=== PATIENT | male | born 1945 | race Caucasian/White ===

== ENCOUNTER 2019-02-08 05:31 | Emergency (ER) | payer OTHER ==
[~2019-02-08] VITALS: Ht 195.6 cm; Wt 129.3 kg
[2019-02-08 06:10] LABS: ABSOLUTE NEUTROPHILS 3.9 thou/uL (1.4-8.2); BASOPHILS 1.2 % (0.0-2.0); HEMATOCRIT 34.3 % (42.0-52.0); HEMOGLOBIN 11.3 gm/dL (14.0-18.0); LYMPHOCYTES 27.4 % (24.0-44.0); MCH 26.7 pg (26.0-34.0); MCHC 32.9 g/dL (28.0-37.0); MCV 81.1 fL (80.0-100.0); MONOCYTES 11.9 % (1.0-8.0); PLATELET COUNT 221 thou/uL (150-400); POLYS 55.5 % (36.0-66.0); RBC 4.23 mil/uL (4.50-6.00); RDW 16.5 % (10.5-14.5)
[2019-02-08] MEDS ORDERED: AMLODIPINE BESY10 MG PO (06:10)
[2019-02-08] MEDS ORDERED: ATORVASTATIN CA40 MG PO (06:11)
[2019-02-08] MEDS ORDERED: ASPIRIN325 PO (06:11)
[2019-02-08] MEDS ORDERED: FOLIC ACID1 MG PO (06:12)
[2019-02-08] MEDS ORDERED: DEPAKOTE 250MG250 M1 PO (06:12)
[2019-02-08] MEDS ORDERED: NEURONTIN 300300 M1 PO (06:13)
[2019-02-08] MEDS ORDERED: GABAPENTIN 100100 MG PO (06:13)
[2019-02-08] MEDS ORDERED: LOXAPINE5 MG PO (06:15)
[2019-02-08] MEDS ORDERED: LEVEMIR SUBQ (06:15)
[2019-02-08] MEDS ORDERED: KAPSPARGO SPRI100 MG PO (06:16)
[2019-02-08] MEDS ORDERED: NOVOLOG100 UNIT/1 SUBQ (06:16)
[2019-02-08] MEDS ORDERED: ZOLOFT50 MG PO (06:17)
[2019-02-08] MEDS ORDERED: TRAMADOL 50 MG50 MG PO (06:18)
[2019-02-08 06:19] LABS: CALCIUM 8.6 mg/dL (8.5-10.1); CREATININE 1.2 mg/dL (0.7-1.3); POTASSIUM 4.5 mmol/L (3.5-5.1)
[2019-02-08] MEDS ORDERED: ALDARA1 EACH TOP (06:19)
[2019-02-08] MEDS ORDERED: LOPERAMIDE 2 MG2 M1 PO (06:20)
[2019-02-08 07:02] LABS: URINE BILIRUBIN NEGATIVE (Negative); URINE BLOOD TRACE (Negative); URINE CLARITY CLEAR; URINE COLOR YELLOW; URINE GLUCOSE-RANDOM* TRACE (Negative); URINE KETONES NEGATIVE (Negative); URINE LEUKOCYTES-REFLEX NEGATIVE (Negative); URINE NITRITE-REFLEX NEGATIVE (Negative); URINE PROTEIN (DIPSTICK) 2+ (Negative); URINE SPECIFIC GRAVITY 1.025 (1.005-1.035); URINE UROBILINOGEN 0.2 E.U./dl (0.2-1.0)
[2019-02-08 07:13] LABS: CASTS None Seen /LPF (None Seen); MUCUS 4-6 Moderate strn/LPF (None Seen); SQUAMOUS 0-3 Few /LPF (0-3)
[2019-02-08 07:14] LABS: AMORPHOUS URATES Few /LPF (None Seen); BACTERIA-REFLEX 1-9 Few /HPF (None Seen); URINE RBC None Seen /HPF (0-2); URINE WBC-REFLEX 0-5 Rare /HPF (0-5)
[2019-02-08] MEDS ORDERED: AUGMENTIN 875-1 EACH PO (07:45)
[2019-02-08 07:46] LABS: ALBUMIN 3.1 g/dL (3.4-5.0); DIRECT BILIRUBIN < 0.1 mg/dL (<0.1-0.3); MAGNESIUM 1.9 mg/dL (1.8-2.4); SGOT 39 U/L (15-37); SGPT 33 U/L (30-65); TOTAL BILIRUBIN 0.2 mg/dL (<0.1-1.0); TOTAL PROTEIN 7.8 g/dL (6.4-8.2); TROPONIN-I <0.06 ng/mL (<0.06)
--- NOTE | 2019-02-08 08:28 | EKG ---
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: JORDAN : 1945 Requested By: Cameron Damon Order Number: [id number] MD: Duane Solis Measurements Intervals [place] Rate: 66 P: 257 NV: 244 QRS: 60 QRSD: 91 T: 114 QT: 452 QTc: 474 Interpretive Statements Sinus or ectopic atrial rhythm Borderline repolarization abnormality No previous ECG available for comparison Electronically Signed On 02-08-2019 8:28:45 CDT by Duane Solis [email or web address] ��������������������������������������������� <ELECTRONICALLY SIGNED> ���������������������������������������� By: Duane Solis MD, [facility] ��������������������������������������������� 02/08/19 0828 0630 Duane Solis MD, FACC /EPI
[2019-02-08 09:55] VITALS: BP 179/74
== END 2019-02-08 09:56 | disposition home or self-care (01) ==
LOC: ER 05:31
PROVIDERS: Emergency Medicine
DX: R41.0 Disorientation, unspecified (principal); L03.011 Cellulitis of right finger; E11.9 Type 2 diabetes mellitus without complications; I10 Essential (primary) hypertension; Z86.73 Personal history of transient ischemic attack (TIA), and cerebral infarction without residual deficits

== ENCOUNTER 2019-11-05 09:49 | Inpatient (IN) | payer OTHER ==
[~2019-11-05] VITALS: Ht 195.6 cm; Wt 138.5 kg
--- NOTE | ~2019-11-05 | HC ---
[facility] [place] [address] CONSULTATION Name: CHRISTIAN ESCOBAR Room #: 356-P [facility] IN M.R.#: [id number] Admission: 11/05/19 Attend Phys: Bibi Finnegan Discharge: 11/08/19 Date of : 49 Report #: [id number] THIS REPORT FOR: cc: FOR E.D. REG USE ONLY FAM - Clinic physician unknown Neo Baig MD ~ CC: [facility] unknown Bibi Finnegan DATE OF SERVICE: 11/08/2019 WOUND CARE CONSULTATION REQUESTING PHYSICIAN: Dr. Finnegan. CHIEF COMPLAINT: Multiple decubitus ulcers. HISTORY OF PRESENT ILLNESS: This is a 74-year-old white male who resides in a skilled nursing facility, who was admitted for right lower extremity cellulitis and was found to have multiple decubitus ulcers on admission. We were asked to evaluate the patient for this. The patient himself is an extremely poor historian, and the majority of the information is obtained from medical records. The patient once again was admitted for IV antibiotics secondary to cellulitis of the right lower extremity. The patient supposedly has had previous CVA with right left-sided hemiparesis. The patient states that he thinks that the decubitus ulcers have been there for several months, but he is unclear of exactly how they started. 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 CURRENT MEDICATIONS: Multiple, I reviewed the patient's medication list. DRUG ALLERGIES: None. SOCIAL HISTORY: The patient, per records, has a former history of smoking, but supposedly quit several years ago. The patient resides in a skilled nursing facility. FAMILY HISTORY AND REVIEW OF SYSTEMS: Unobtainable because of the patient's altered mental status. PHYSICAL EXAMINATION: VITAL SIGNS: Temperature 36.6, pulse 80, respirations 20, BP 125/65. [facility] [address] [place] [address] CONSULTATION Name: CHRISTIAN ESCOBAR Room #: 356-P [facility] IN M.R.#: [id number] Admission: 11/05/19 Attend Phys: Bibi Choudhary Rosalinapablo Discharge: 11/08/19 Date of : 49 Report #: [id number] GENERAL: This is an alert and oriented x 1 person, but not place or time, white male who is chronically ill appearing. HEENT: Normocephalic, atraumatic. Mucous membranes are dry. Pupils are round. Sclerae white. NECK: Supple, nontender. LUNGS: Clear. HEART: Regular. ABDOMEN: Soft, nontender. EXTREMITIES: Right upper extremity is somewhat edematous, approximately 1+. The patient is extended and essentially flaccid on the right hand. There are deep tissue injuries to the first, second, third and fourth digits over the PIP joints without open ulcerations. Left upper extremity is without edema or ulcerations. Evaluation of the sacral gluteal region reveals a stage 3 ulceration with mixed amount of granulation and slough. There is moderate amount of serosanguineous drainage noted without significant odor. Periwound is somewhat macerated. There is no significant undermining or tunneling. On the right lateral lower extremity, there is a deep tissue injury along the area of the lateral ankle, knee and thigh. There is increased erythema and warmth to the right lower extremity, and was somewhat tender. Right heel is intact. Left lower extremity has a [id number] amputation, which is intact without signs of ulceration or cellulitis. NEUROLOGIC: The patient is paralyzed on the right side. LABORATORY DATA: White count 14.8, hemoglobin 8.7, sed rate is 132. BUN 71, creatinine 3.1, albumin 1.8. Venous Doppler of the right upper extremity shows no signs of DVT. IMPRESSION: 1. Chronic stage 3 decubitus ulcer, sacrococcygeal and gluteal region. 2. Chronic deep tissue injury to the digits on the right hand 1 through 4. 3. Deep tissue injury to the right lateral ankle. 4. Deep tissue injury to the right knee. 5. Deep tissue injury to the right thigh. 6. Cellulitis, right leg. 7. Protein-calorie malnutrition -- severe, albumin 1.8. 8. Generalized debility. 9. Diabetes mellitus. PLAN: At this time, we will start Betadine to all the deep tissue injuries daily. We will put the patient on low air loss mattress, have him turned every 2 hours. We will start barrier cream and sacral foam to the sacral ulcer, change daily. Continue IV antibiotics per the hospitalist. We will continue all other current medications and continue to follow the patient. [address] [address] CONSULTATION Name: CHRISTIAN ESCOBAR Room #: 356-P [facility] IN M.R.#: [id number] Admission: 11/05/19 Attend Phys: Bibi Finnegan Discharge: 11/08/19 Date of : 49 Report #: [id number] I appreciate the ability to consult. By: 1638 [id number] Neo Baig MD /nt
[~2019-11-05 09:49] MED LIST: ALDARA1 EACH TOP; AMLODIPINE BESY10 MG PO; ASPIRIN325 PO; ATORVASTATIN CA40 MG PO; AUGMENTIN 875-1 EACH PO; DEPAKOTE 250MG250 M1 PO; FOLIC ACID1 MG PO; GABAPENTIN 100100 MG PO; KAPSPARGO SPRI100 MG PO; LEVEMIR SUBQ; LOPERAMIDE 2 MG2 M1 PO; LOXAPINE5 MG PO; NEURONTIN 300300 M1 PO; NOVOLOG100 UNIT/1 SUBQ; TRAMADOL 50 MG50 MG PO; ZOLOFT50 MG PO
[2019-11-05 09:52] VITALS: BP 108/58
[2019-11-05 12:15] LABS: HEMATOCRIT 31.4 % (42.0-52.0); HEMOGLOBIN 9.9 gm/dL (14.0-18.0); MCH 25.1 pg (26.0-34.0); MCHC 31.6 g/dL (28.0-37.0); MCV 79.6 fL (80.0-100.0); PLATELET COUNT 221 thou/uL (150-400); RBC 3.94 mil/uL (4.50-6.00); RDW 17.6 % (10.5-14.5); WBC 27.3 thou/uL (4.0-11.0)
[2019-11-05 12:40] LABS: ALBUMIN 2.1 g/dL (3.4-5.0); CALCIUM 8.6 mg/dL (8.5-10.1); CREATININE 3.7 mg/dL (0.7-1.3); DIRECT BILIRUBIN 0.1 mg/dL (<0.1-0.2); POTASSIUM 2.8 mmol/L (3.5-5.1); TOTAL BILIRUBIN 0.3 mg/dL (<0.1-1.0); TOTAL PROTEIN 7.8 g/dL (6.4-8.2)
[2019-11-05] MEDS ORDERED: ACETAMINOPHEN325 M1 PO (13:17)
[2019-11-05] MEDS ORDERED: DIMENHYDRINATE50 MG PO (13:18)
[2019-11-05] MEDS ORDERED: PRINIVIL10 MG PO (13:21)
[2019-11-05] MEDS ORDERED: MUCINEX600 MG PO (13:22)
[2019-11-05] MEDS ORDERED: ZOFRAN4 MG PO (13:23)
[2019-11-05 13:53] LABS: ABSOLUTE NEUTROPHILS 25.9 thou/uL (1.4-8.2); ANISOCYTOSIS 1+; MICROCYTES 1+
--- NOTE | 2019-11-05 14:13 | NUR ---
VASCULAR ACCESS CONSULTED FOR PICC LINE DISCUSSED WITH DR SERRANO PT'S CREAT AND GFR. AGREED CENTRAL LINE MORE APPROPRIATE. DISCUSSED BENEFITS AND RISK WITH PT, VERBALIZED UNDERSTANDING GAVE WITNESSED VERBAL CONSENT UNABLE TO SIGN AT PRESENT. LIJ WAS WIDELY PATENT. 6FR 25CM JACC CATH INSERTED TO 4CM EXTERNAL WITH BRISK BR. STAT CXR ORDERED. PT TOLERATED WELL.
--- NOTE | 2019-11-05 15:04 | NUR ---
CXR CONFIRMED LIJ PLACEMENT AT [facility]. LINE RELEASED FOR IMMEDIATE USE PER PROTOCOL TO DILEEP GUTIERREZ
[2019-11-05 20:33] LABS: URINE BILIRUBIN 1+ (Negative); URINE BLOOD NEGATIVE (Negative); URINE CLARITY CLOUDY; URINE COLOR YELLOW; URINE GLUCOSE-RANDOM* NEGATIVE (Negative); URINE KETONES NEGATIVE (Negative); URINE LEUKOCYTES-REFLEX NEGATIVE (Negative); URINE NITRITE-REFLEX NEGATIVE (Negative); URINE PROTEIN (DIPSTICK) 2+ (Negative); URINE SPECIFIC GRAVITY >= 1.030 (1.005-1.035); URINE UROBILINOGEN 0.2 E.U./dl (0.2-1.0)
[2019-11-05 21:00] LABS: CASTS None Seen /LPF (None Seen); CRYSTALS None Seen /LPF (None Seen); SQUAMOUS 0-3 Few /LPF (0-3)
[2019-11-05 21:01] LABS: BACTERIA-REFLEX 1-9 Few /HPF (None Seen); URINE RBC None Seen /HPF (0-2); URINE WBC-REFLEX 0-5 Rare /HPF (0-5)
[2019-11-06 10:08] LABS: HEMATOCRIT 28.3 % (42.0-52.0); HEMOGLOBIN 8.8 gm/dL (14.0-18.0); MCV 80.9 fL (80.0-100.0); RBC 3.5 mil/uL (4.50-6.00); RDW 17.9 % (10.5-14.5); WBC 21.5 thou/uL (4.0-11.0)
[2019-11-06 10:13] LABS: CALCIUM 7.7 mg/dL (8.5-10.1); POTASSIUM 3.6 mmol/L (3.5-5.1)
[2019-11-06 10:16] LABS: PHOSPHORUS 5.6 mg/dL (2.5-4.9)
--- NOTE | 2019-11-06 11:57 | 2DMMODE ---
[facility] [place] [address] 2 D/M-MODE ECHOCARDIOGRAM Name: CHRISTIAN ESCOBAR Room #: 170-15 ADM IN M.R.#: [id number] Admission: 11/05/19 Attend Phys: Bibi Finnegan Discharge: Date of : 49 Report #: [id number] THIS REPORT FOR: cc: FOR E.D. REG USE ONLY Adrian Arenas MD ~ APPROVED REPORT Study performed: 11/06/2019 11:13:51 EXAM: Comprehensive 2D, Doppler, and color-flow Echocardiogram Patient Location: ER Room #: 15 Status: routine BSA: 2.46 HR: 95 bpm BP: 106/59 mmHg Rhythm: Atrial Flutter Other Information Study Quality: Adequate/no patient cooperation. Technically limited study due to obesity, flat on back, heavy breathing. Indications Sepsis, bacteremia. Hx: CVA, DM, HTN. 2D Dimensions RVDd: 47.58 mm IVSd: 18.20 (7-11mm) LVOT Diam: 24.75 (18-24mm) LVDd: 49.31 mm PWd: 10.30 (7-11mm) Ascending Ao: 38.32 (22-36mm) LVDs: 33.70 (25-40mm) Aortic Root: 36.60 mm Volumes Left Atrial Volume (Systole) Single Plane 4CH: 98.12 mL Single Plane 2CH: 100.77 mL LA ESV Index: 45.00 mL/m2 Aortic Valve AoV Peak Brayan.: 1.55 m/s AO Peak Gr.: 9.62 mmHg LVOT Max P.44 mmHg [facility] [address] [place] [address] 2 D/M-MODE ECHOCARDIOGRAM Name: CHRISTIAN ESCOBAR Room #: 170-15 [facility] IN ..#: [id number] Admission: 11/05/19 Attend Phys: Bibi Choudhary Nov Discharge: Date of : 49 Report #: [id number] LVOT Max V: 0.93 m/s LAUREN Vmax: 2.87 cm2 Mitral Valve MV Decel. Time: 228.48 ms MV E Max Brayan.: 1.05 m/s Pulmonary Valve PV Peak Brayan.: 0.76 m/s PV Peak Gr.: 2.31 mmHg Tricuspid Valve TR Peak Brayan.: 3.34 m/s TR Peak Gr.: 45.00 mmHg Left Ventricle The left ventricle is normal size. There is normal LV segmental wall motion. Moderate left ventricular hypertrophy. Left ventricular systolic function is normal. LVEF is 60-65%. This study is not technically sufficient to allow evaluation of the LV diastolic function due to atrial fibrillation. Right Ventricle Right ventricle is at the upper limits of normal. The right ventricular systolic function is normal. Atria Left atrium is moderately dilated. Right atrium is mildly dilated. Aortic Valve The aortic valve is normal in structure. Leaflets are mildly thickened with focal calcified. No aortic regurgitation is present. There is no aortic valvular stenosis. Mitral Valve The mitral valve is normal in structure. Mild mitral annular calcification. Mild mitral regurgitation. No evidence of mitral valve stenosis. Tricuspid Valve The tricuspid valve is normal in structure. Moderate tricuspid regurgitation. Estimated PAP is 45mmHg plus the right atrial pressure. Pulmonic Valve Pulmonic valve is not well visualized. Trace pulmonic [facility] [address] [place] [address] 2 D/M-MODE ECHOCARDIOGRAM Name: CHRISTIAN ESCOBAR Room #: 170-15 ADM IN M.R.#: [id number] Admission: 11/05/19 Attend Phys: Bibi Romano Discharge: Date of : 49 Report #: [id number] regurgitation. Great Vessels The aortic root is normal in size. The ascending aorta is borderline dilated. IVC is not well visualized. Pericardium There is no pericardial effusion. <Conclusion> The left ventricle is normal size. LVEF is 60-65%. Left atrium is moderately dilated. Right atrium is mildly dilated. The aortic valve is normal in structure. Leaflets are mildly thickened with focal calcified. The mitral valve is normal in structure. Mild mitral annular calcification. Mild mitral regurgitation. The tricuspid valve is normal in structure. Moderate tricuspid regurgitation. Estimated PAP is 45mmHg plus the right atrial pressure. The ascending aorta is borderline dilated. There is no pericardial effusion. <ELECTRONICALLY SIGNED> By: Adrian Arenas MD 11/06/19 1156 1156 1156 Adrian Arenas MD /INF
[2019-11-06 14:29] VITALS: BP 124/65
[2019-11-06 17:46] VITALS: BP 124/59
[2019-11-06 18:19] VITALS: BP 122/67
--- NOTE | 2019-11-06 18:32 | NUR ---
REC PT FROM ED AT 1830, HOOKED BACK UP TO IVF WITH NEW LINE. A&0X2-3 AND JOKES ABOUT ANSWERING LOC QUESTIONS SO THIS MAY BE INACCURATE AT THIS MOMENT. IS NOT AMBULATORY. MOANS INTERMITTENTLY, WHEN ASKED ABOUT PAIN HE STATES HE JUST MOANS AND ISN'T IN PAIN AT THIS TIME. BLEEDING SACRUM OPEN AREA, BOTH BUTTOCKS, TOOK PHOTO, SHOWED PT HOW TO USE CALL LIGHT, ACHS, SLIGHTLY ROSEBUD. CARDIAC MONITORED. SEE SEPARATE INTERVENTIONS FOR ASSESSMENTS. ENCOURAGED PT TO USE CALL LIGHT FOR ANY NEEDS, STATES HE DOES NOT WEAR 02 AT [facility]. ED NURSE STATED MEDS ENTERED. WILL GIVE REPORT NOW TO HS SHIFT.
[2019-11-06 19:43] VITALS: BP 125/68
[2019-11-07 03:32] VITALS: BP 142/73
--- NOTE | 2019-11-07 05:39 | NUR ---
PT ARRIVED TO UNIT AROUND 1800. COMPLETED ALL ADMISSION, CARE PLAN, MED REC AND INTERVENTIONS. PT HAS WOUNDS TO COCCYX AND PICTURE HAS BEEN TAKEN AND RIGHT LEG HAS CELLULITIS. CONSULT TO ID WAS PLACED AND DR. SYED ROUNDED ON PT. ORDERS RECEIVED FOR NEW IVPB AND INITIATED THE CHANGE. BLADDER SCANNED PT 2X WITH LAST AMOUNT AT 883ML. PER DR. SYED, SAID TO INSERT SIDHU DUE TO IMMOBILIZATION AND WOUND TO COCCYX. SIDHU IN PLACE WITH GOOD DRAINAGE. PT IS ALERT AND MOANS. LOOKING OVER PAPERWORK SENT FROM [facility], PT IS BIPOLAR AND HAS MAJOR DEPRESSIVE DISORDER. WILL CONTINUE TO MONITOR AND ASSESS.
[2019-11-07 08:07] VITALS: BP 145/86
[2019-11-07 08:23] VITALS: BP 142/76
[2019-11-07 11:53] LABS: HEMATOCRIT 28.1 % (42.0-52.0); HEMOGLOBIN 8.7 gm/dL (14.0-18.0); MCH 24.9 pg (26.0-34.0); MCHC 30.9 g/dL (28.0-37.0); MCV 80.8 fL (80.0-100.0); PLATELET COUNT 247 thou/uL (150-400); RBC 3.48 mil/uL (4.50-6.00); RDW 18.2 % (10.5-14.5); WBC 14.8 thou/uL (4.0-11.0)
[2019-11-07 12:09] LABS: ALBUMIN 1.8 g/dL (3.4-5.0); CALCIUM 7.9 mg/dL (8.5-10.1); CREATININE 3.1 mg/dL (0.7-1.3); POTASSIUM 3.4 mmol/L (3.5-5.1); TOTAL BILIRUBIN 0.2 mg/dL (<0.1-1.0); TOTAL PROTEIN 7.2 g/dL (6.4-8.2)
[2019-11-07 12:37] LABS: ABSOLUTE NEUTROPHILS 12.4 thou/uL (1.4-8.2); ANISOCYTOSIS 2+; METAMYELOCYTES 1 %; MYELOCYTES 2 %
--- NOTE | 2019-11-07 14:38 | NUR ---
ASSUMED CARE OF PT AT 0700. PT AOX3 IN NO ACUTE DISTRESS. COMPLAINS OF PAIN TO BLE WHEN REPOSITIONED. COCCYX WOUND DRESSED BY WOUND CARE PHYSICIAN. TURNED Q2H AND PRN. SIDHU IN PLACE WITH GOOD OUTPUT. IV ABX INFUSING PER ORDER. ONE TIME DOSE LASIX GIVEN. IVF DISCONTINUED. WILL CONT TO MONITOR.
[2019-11-07 15:07] VITALS: BP 121/70
--- NOTE | 2019-11-07 16:33 | NUR ---
discharge planning. anticipated discharge planned for monday. patient discharging to [facility]. patient clinicals faxed to [facility] admissions. call placed to [facility] to notify of discharge plan. following.
[2019-11-07 19:49] VITALS: BP 130/66
[2019-11-08 04:04] VITALS: BP 125/65
[2019-11-08 08:09] VITALS: BP 154/79
[2019-11-08] MEDS ORDERED: KEFLEX500 M2 PO (09:13)
--- NOTE | 2019-11-08 15:20 | NUR ---
INITIAL ASSESSMENT/DISCHARGE NOTE: Received consult. Pt was admitted from [facility] due to sepsis/cellulitis. Pt is medically stable for discharge back to [facility] today. XIN met with pt at bedside. Introduced role of SW. Pt is alert/orientated. Pt with hx of CVA with right sided weakness. Pt uses a w/c at the facility. Pt agreeable with discharge plan back to [facility]. Initial info faxed over yesterday. XIN faxed discharge orders/summary to [facility] and spoke with Adry in admissions, who confirmed that they are able to accept pt back today. Ambulance scheduled for 1530 via [facility]. XIN spoke with pt's ex-, Lizabeth, to provide update and notify of discharge. Lizabeth is aware and agreeable with discharge plan. Chart copy requested. Nursing provided with number to call report. No additional SW needs identified at this time, but is available to assist should needs arise.
--- NOTE | 2019-11-08 16:41 | NUR ---
LESLEE DISCHARGED AT THIS TIME TO [place]. CALLED TO GIVE REPORT THREE TIMES AND NURSES WILL NOT SUPERVISOR CHLORINE LIQUEFACTION THE PHONE. HE WAS NOT IN PAIN AT TIME OF TRANSFER. WILL CONT WITH PLAN OF CARE.
== END 2019-11-08 16:26 | DRG 871 ==
LOC: ER 09:49 → EROBS 15:49 → 3W 15:49 → EROBS 11-06 10:58 → 3W 11-06 17:56
PROVIDERS: Emergency Medicine; Specialist; ADMIT Hospitalist
PROC: 02H633Z Insertion of Infusion Device into Right Atrium, Percutaneous Approach (ICD-10-PCS; principal; 2019-11-05)
PROC: B543ZZA Ultrasonography of Right Jugular Veins, Guidance (ICD-10-PCS; 2019-11-05)
DX: A41.9 Sepsis, unspecified organism (principal); L89.153 Pressure ulcer of sacral region, stage 3; L89.303 Pressure ulcer of unspecified buttock, stage 3; E43 Unspecified severe protein-calorie malnutrition; L03.116 Cellulitis of left lower limb; L03.115 Cellulitis of right lower limb; I69.351 Hemiplegia and hemiparesis following cerebral infarction affecting right dominant side; N17.9 Acute kidney failure, unspecified; L03.011 Cellulitis of right finger; E86.0 Dehydration; E11.9 Type 2 diabetes mellitus without complications; I10 Essential (primary) hypertension; E87.6 Hypokalemia; L89.159 Pressure ulcer of sacral region, unspecified stage; L89.899 Pressure ulcer of other site, unspecified stage; L89.510 Pressure ulcer of right ankle, unstageable; S60.021A Contusion of right index finger without damage to nail, initial encounter; S60.031A Contusion of right middle finger without damage to nail, initial encounter; S60.041A Contusion of right ring finger without damage to nail, initial encounter; S60.011A Contusion of right thumb without damage to nail, initial encounter; S80.01XA Contusion of right knee, initial encounter; S70.11XA Contusion of right thigh, initial encounter; X58.XXXA Exposure to other specified factors, initial encounter; Z79.82 Long term (current) use of aspirin; Z79.899 Other long term (current) drug therapy; Z87.891 Personal history of nicotine dependence; Y92.89 Other specified places as the place of occurrence of the external cause; Z89.519 Acquired absence of unspecified leg below knee; Y99.8 Other external cause status; Y93.89 Activity, other specified; Z68.36 Body mass index [BMI] 36.0-36.9, adult
CPT/HCPCS: 10779; 10879

== ENCOUNTER 2019-11-22 17:01 | Inpatient (IN) | payer OTHER ==
[~2019-11-22] VITALS: Ht 182.9 cm; Wt 120.8 kg
[2019-11-22 17:01] VITALS: BP 148/99
[~2019-11-22 17:01] MED LIST changes: +ACETAMINOPHEN325 M1 PO; +DIMENHYDRINATE50 MG PO; +KEFLEX500 M2 PO; +MUCINEX600 MG PO; +PRINIVIL10 MG PO; +ZOFRAN4 MG PO
[2019-11-22] MEDS ORDERED: OMEPRAZOLE 20 M20 M1 PO (17:29)
[2019-11-22] MEDS ORDERED: LISINOPRIL2.5 MG PO (17:31)
[2019-11-22 17:41] LABS: ABSOLUTE NEUTROPHILS 10.2 thou/uL (1.4-8.2); BASOPHILS 0.7 % (0.0-2.0); EOSINOPHILS 0.7 % (0.0-3.0); HEMATOCRIT 34.7 % (42.0-52.0); HEMOGLOBIN 10.9 gm/dL (14.0-18.0); MCHC 31.5 g/dL (28.0-37.0); MCV 79.4 fL (80.0-100.0); PLATELET COUNT 336 thou/uL (150-400); POLYS 81.6 % (36.0-66.0); RBC 4.37 mil/uL (4.50-6.00); RDW 16.9 % (10.5-14.5); WBC 12.6 thou/uL (4.0-11.0)
[2019-11-22 17:48] LABS: ANION GAP 4 mmol/L (7-16); BUN 18 mg/dL (7-18); CALCIUM 9.2 mg/dL (8.5-10.1); CHLORIDE 99 mmol/L (98-107); CO2 32 mmol/L (21-32); CREATININE 1.4 mg/dL (0.7-1.3); GLUCOSE 140 mg/dL (74-106); POTASSIUM 4.8 mmol/L (3.5-5.1); SODIUM 135 mmol/L (136-145)
[2019-11-22 17:58] LABS: ALBUMIN 2.7 g/dL (3.4-5.0); LIPASE 85 U/L (73-393); SGOT 23 U/L (15-37); SGPT 15 U/L (30-65); TOTAL BILIRUBIN 0.7 mg/dL (<0.1-1.0); TOTAL PROTEIN 9.6 g/dL (6.4-8.2); TROPONIN-I <0.06 ng/mL (<0.06)
[2019-11-22 18:30] LABS: URINE BILIRUBIN NEGATIVE (Negative); URINE BLOOD TRACE (Negative); URINE CLARITY CLEAR; URINE COLOR YELLOW; URINE GLUCOSE-RANDOM* NEGATIVE (Negative); URINE KETONES NEGATIVE (Negative); URINE LEUKOCYTES-REFLEX NEGATIVE (Negative); URINE NITRITE-REFLEX NEGATIVE (Negative); URINE PROTEIN (DIPSTICK) 2+ (Negative); URINE UROBILINOGEN 0.2 E.U./dl (0.2-1.0)
[2019-11-22 18:40] LABS: BACTERIA-REFLEX None Seen /HPF (None Seen); CASTS None Seen /LPF (None Seen); CRYSTALS None Seen /LPF (None Seen); SQUAMOUS None Seen /LPF (0-3); URINE RBC 0-2 Rare /HPF (0-2); URINE WBC-REFLEX None Seen /HPF (0-5)
[2019-11-22 20:18] VITALS: BP 148/99
[2019-11-22 20:40] VITALS: BP 125/90
[2019-11-22 21:47] VITALS: BP 138/100
[2019-11-23 04:30] VITALS: BP 116/34
[2019-11-23 06:07] LABS: CALCIUM 8.4 mg/dL (8.5-10.1); CREATININE 1.6 mg/dL (0.7-1.3); MAGNESIUM 1.7 mg/dL (1.8-2.4); POTASSIUM 4.6 mmol/L (3.5-5.1)
[2019-11-23 06:08] LABS: ABSOLUTE NEUTROPHILS 7.9 thou/uL (1.4-8.2); BASOPHILS 1.2 % (0.0-2.0); EOSINOPHILS 0.4 % (0.0-3.0); HEMATOCRIT 29.8 % (42.0-52.0); HEMOGLOBIN 9.5 gm/dL (14.0-18.0); MCH 25.8 pg (26.0-34.0); MCHC 31.7 g/dL (28.0-37.0); MCV 81.2 fL (80.0-100.0); MONOCYTES 7.1 % (1.0-8.0); PLATELET COUNT 295 thou/uL (150-400); POLYS 74.3 % (36.0-66.0); RBC 3.67 mil/uL (4.50-6.00); RDW 17.9 % (10.5-14.5); WBC 10.7 thou/uL (4.0-11.0)
--- NOTE | 2019-11-23 06:37 | NUR ---
ASSUME CARE 2200. PT/VITALS STABLE. TREMORS NOTED LEFT HAND. DECUB ULCER NOTED MARLEN BUTTOCKS. PIC IN CHART. DENIES ANY PAIN. RIGHT SIDED PARALYSIS. MANAGES TO HELP WSITH TURNS TO THE RIGHT SIDE. INCONTINENT OF URINE AND STOOL. ASSESSMENT CHARTED. PROGRESSING MODERATELY WITH POCV. PLAN IS TO CONTINUE ABX TRETMENT FOR INCRERASE LACTIC ACID/LEUKOCYTOSIS/WOUND, CONSULT GI FOR N/V, MANAGE AFIB WITH BB/ASA, CONTINUE TO ,MANAGE BLOOD SUGAR. NO DISTRESS NOTED. SWALLOWS THN LIQUIDS AND MEDS OK. WILL CONTINUE TO MONITOR AND FOLLOW WITH POC
[2019-11-23 07:20] VITALS: BP 157/94
--- NOTE | 2019-11-23 10:19 | EKG ---
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: : 1945 Requested By: Coco Fine Order Number: [id number] MD: Duane Solis Measurements Intervals [place] Rate: 122 P: [place]: QRS: 97 QRSD: 100 T: 134 QT: 402 QTc: 573 Interpretive Statements Marked artifact limits rhythm interpretation Undetermined rhythm, possibly atrial flutter Compared to ECG 02/08/2019 06:30:[address] and T wave segments or rhythm due to artifact Electronically Signed On 11-23-2019 10:18:50 STEAMFITTER SUPERVISOR by Duane Solis [email or web address] <ELECTRONICALLY SIGNED> By: Duane Solis MD, [facility] 11/23/19 1018 1746 1746 Duane Solis MD, [facility] /EPI
--- NOTE | 2019-11-23 12:14 | NUR ---
ASSESSMENT CHARTED, DENIES ANY NEEDS AT THIS TIME, AND VSS MORNING MEDS GIVEN SCHEDULED. AND WILL CONTINUE WITH POC.
[2019-11-23 17:04] VITALS: BP 121/69
--- NOTE | 2019-11-23 17:17 | NUR ---
ASSUMED CARE OF PATIENT AT 1130 FROM [facility]. VITAL SIGNS STABLE. PATIENT RESTING COMFORTABLY. IV ABX GIVEN. PATIENT TRANSFERRED TO [place] [address] ON AT 1715. PATIENT TO CONTINUE PLAN OF CARE. PATIENT'S TELE WAS REMOVED. PATIENT WAS TRANSFERRED IN HIS BED.
--- NOTE | 2019-11-23 18:20 | NUR ---
74 YO MALE TRANSFERED FROM CCU. A&OX4. IV INTACT IN L FA AND L WRIST INFUSING FLUIDS W/O COMPS. L BKA NOTED. R SIDE OF BODY IS FLACID. REQUIRES TRAY SET UP BUT CAN FEED HIMSELF AND ALSO USE A URINAL. ORIENTED PT TO ROOM, CALL LIGHT IS W/I REACH, BED ALARM IS ON.
[2019-11-23 19:50] VITALS: BP 135/59
--- NOTE | 2019-11-24 04:23 | NUR ---
ASSESSED AT START OF SHIFT. IV INTACT AND FLIUDS INFUISING. PT INCONTINENT OF BOWEL AND BLADDER. X1 BM THIS SHIFT. BLOOD SUGAR CHECKED NIGHT TIME INSULIN NOT ADMINISTERED DUE TO POOR APPETITE. DECUBITUS WOUND NOTED NO DRESSING CHANGE ORDERS YET. WOUND CARE ON CASE. ABD APPLIED, PT TURNED AND WEDGE PILLOW APPLY FOR COMFORT. LBKA. PRAFO BOOTS ON THE RLE. FALL PREC IN PLACE AND CALL LIGHT IN REACH WILL CONT WITH POC TILL EOS.
[2019-11-24 04:40] VITALS: BP 138/57
[2019-11-24 06:23] LABS: ALBUMIN 2.2 g/dL (3.4-5.0); CALCIUM 8.2 mg/dL (8.5-10.1); POTASSIUM 4.1 mmol/L (3.5-5.1); TOTAL BILIRUBIN 0.3 mg/dL (<0.1-1.0)
--- NOTE | 2019-11-24 06:43 | HC ---
[facility] [place] [address] CONSULTATION Name: CHRISTIAN ESCOBAR Room #: 438-P [facility] IN M.R.#: [id number] Admission: 11/22/19 Attend Phys: Lorenzo Gary MD Discharge: Date of : 49 Report #: [id number] THIS REPORT FOR: cc: Candis Moya,Candis Robb,Tone Mccoy MD ~ CC: Lorenzo Moya DATE OF SERVICE: 11/23/2019 HISTORY OF PRESENT ILLNESS: A 74-year-old white man, resident of a local halfway and is admitted with profuse nausea and vomiting and some lactic acidemia that resolved after fluid resuscitation. The patient currently states feeling much better. Denies any significant problems currently. PAST MEDICAL HISTORY: Cardiac arrhythmias, atrial flutter/fibrillation. Ventricular premature contractions. Left-sided CVA with right hemiparesis. Acute kidney injury. Bipolar disorder. Left BKA. Genital warts. DRUG ALLERGIES: None listed. MEDICATIONS: The patient is currently on treatment with loxapine 5 mg at bedtime, divalproex 750 mg at bedtime, atorvastatin 40 mg at bedtime, metoclopramide 10 mg IV b.i.d., sertraline 150 mg p.o. daily, metoprolol 200 mg daily, folic acid 1 mg daily, Lactobacillus acidophilus 2 capsules p.o. daily, subcutaneous heparin 5000 units b.i.d., pantoprazole 40 mg p.o. daily, Zosyn 3.375 grams IV every 8 hours, gabapentin 300 mg t.i.d., p.r.n. glucose, glucagon, vancomycin 1000 mg IV every 12 hours. SOCIAL HISTORY: See H and P, old records. FAMILY HISTORY: See H and P, old records. REVIEW OF SYSTEMS: As above and see H and P. PHYSICAL EXAMINATION: GENERAL: Chronically ill-appearing white man. VITAL SIGNS: Temperature 99.5, pulse 78, respirations 20, BP 138/100. HEENMT: Dry mucous membrane. Mouth: Missing teeth. Pupils reactive. NECK: Supple. LUNGS: Clear. HEART: S1, S2. No gallop. ABDOMEN: Soft, no masses or megaly. GENITAL AND RECTAL: Deferred. EXTREMITIES: Left BKA. [facility] [address] [place] [address] CONSULTATION Name: CHRISTIAN ESCOBAR Room #: [facility] IN M.R.#: [id number] Admission: 11/22/19 Attend Phys: Lorenzo Gary MD Discharge: Date of : 49 Report #: [id number] LABORATORY DATA: Sodium 136, potassium 4.6, BUN 20, creatinine 1.6, glucose 140, albumin 2.7, CRP 48.8. WBC 10.7, hemoglobin 9.5, platelets 295,000. Sedimentation rate 130 mm per hour. Urinalysis revealed pH 8.5, 2+ protein, trace blood. Microscopic exam negative so far. MICROBIOLOGY DATA: Blood cultures were obtained, they remain negative. RADIOLOGY EVALUATION: CT scan abdomen and pelvis reveal thickening of the urinary bladder, question cystitis versus mural mass, large bilateral inguinal hernias, fat containing. ASSESSMENT: 1. Nausea, vomiting, question etiology, improved. 2. Acute kidney injury. 3. Dehydration. 4. History of cerebrovascular accident. 5. Sacral decubitus. 6. Genital warts. 7. Anemia of chronic disease. SUGGESTIONS: While awaiting culture results, we will continue coverage with Zosyn and vancomycin. Dr. Gary, thank you for requesting our suggestions in the care of your patient. <ELECTRONICALLY SIGNED> By: Tone Ac MD 11/24/19 [phone] 0758 Tone Ac MD /nt
[2019-11-24 12:20] VITALS: BP 142/117
--- NOTE | 2019-11-24 13:52 | NUR ---
PT CARE ASSUMED AT 0700. A&Ox4. PT USES URINAL. PT HAD A REGULAR DIET THIS MORNING, DIET WAS SWITCHED TO CAR CONTROL. ACHS WITH COVERAGE NEEDED. L.BKS WITH RIGHT SIDED CVA RECIDUAL WEAKNESS. PT IS FROM [place]. INCONTINENT TO BOWEL AND BLADDER. IV PATENT WITH NO REDNESS OR EDEMA. FLUIDS INFUSING. PERIPHERAL BOOT IN PLACE WITH CELLULITIS. INTERDRY UNDER PANNUS. PT IS A SET UP TRAY. LOW AIRLOSS MATRESS. AWAITING WOUND CONSULT. PT IS NOT COMPLAINING OF ANY PAIN. FALL PROTOCOLL IN PLACE. CALL LIGHT IN REACH. Q2 TURNS.
[2019-11-24 18:07] VITALS: BP 166/64
[2019-11-24 18:15] VITALS: BP 166/64
[2019-11-24 18:20] VITALS: BP 166/64
[2019-11-24 22:25] VITALS: BP 135/106
[2019-11-25 05:30] VITALS: BP 163/72
--- NOTE | 2019-11-25 06:49 | NUR ---
PT AOX4. PT DENIES PAIN AT TIME OF ASSESSMENT. PT REPORTS 6/10 PAIN THIS MORNING IN LEFT THUMB/HAND. PT RECEIVING PRN PO NORCO Q4HR. PT DEPENDENT WITH TRANSFERS AND REPOSITIONING. PT NOTED TO HAVE TREMORING LEFT ARM AND HAND. PT WITH RIGHT SIDED HEMIPLEGIA. PT CONTINUES WITH ORDER FOR AIR LOSS MATTRESS, AWAITING PUMP. ENCOURAGED FREQUENT REPOSITIONING. PT REQUIRES MAX ASSIST X3-4. PT REPORTS HE SCRATCHES HIS NECK, SCABS NOTED ON NECK. PT ALSO NOTED TO HAVE SACRAL WOUND AND OPEN SORE ON ANTERIOR OF RIGHT CALF. WOUND CARE PROVIDED, WOUNDS CLEANSED WITH NS, COVERED WITH NONADHERENT DRESSING, ABD, SECURED WITH TAPE. PT TOLERATING PO INTAKE OF THIN LIQUIDS WITHOUT ISSUE. PT USES URINAL, INCONTINENT OF BOWEL AND BLADDER. ENCOURAGED TO NOTIFY STAFF FOR ALL NEEDS. CALL LIGHT WITHIN REACH, BED ALARM ON, BED IN LOWEST POSITION. WILL CONTINUE TO MONITOR.
[2019-11-25 07:30] VITALS: BP 180/76
--- NOTE | 2019-11-25 11:33 | NUR ---
Assess due to notification of pt with sacral decub. admit from nursing facility . Hx DM, CVA, HTN. Obesity with BMI 36.1. BG well controlled and pt eating >75%. Wts variable from past but usually trend closer to 250 lb range. Continue carb controlled diet. Will add ensure supplement if intake falls below 75%. Low nutrition risk
[2019-11-25 12:20] VITALS: BP 160/111
--- NOTE | 2019-11-25 13:46 | NUR ---
PT ADMITTED RELATED TO DECUBITIS ULCER, SEPSIS. CM REVIEWED CHART AND SPOKE WITH CARE TEAM. CM MET WITH PT AT BEDSIDE THIS DAY. PT IS A&O X4. CM ROLE INTRODUCED. PT INDICATED HE LIVES AT [facility] IN [place]. PT INDICATED FAILITY HAD USED A LIFT DEVICE TO ASSIST WITH TRANSFERING PT FROM BED TO PRIOR TO ADMISSION. PT INDICATED HE HAD APPLIED FOR MEDICARE PART B BUT THAT HE WON'T GET IT UNTIL THIS SUMMER AT THAT TIME HE HOPES TO MOVE TO [facility]. PT INDICATED THAT HIS SON AND HIS EX A GOOD CONTACTS FOR HIM. HE INDICATED THAT HE PLANS TO RETURN TO [place] ONCE MEDICALLY STABLE. CM TO FOLLOW INDICATED WITH DC PLANNING. CLINICAL UPDATE SENT TO [place].
[2019-11-25 16:06] VITALS: BP 160/111
--- NOTE | 2019-11-25 16:53 | NUR ---
FAXED CLINICAL UPDATE TO [facility] RECEIVED CONFIRMATION AND LEFT MSG WITH SYLVIE IN ADM. DP TO FOLLOW.
--- NOTE | 2019-11-25 16:54 | NUR ---
PT CARE ASSUMED AT 0700. A&Ox4. PT IS ON BEDREST DUE TO HIS HEMIPALEGIA AND L.BKA. ACHS WITH INSULIN COVERAGE. Q2H TURNS. PERIPHERAL BOOT IN PLACE. RIGHT SIDED WEAKNESS. PICTURES TAKEN FROM NEW WOUNDS DISCOVERED ON R OUTER THIGH AND KNUCKLES ON R. HAND. PT USES URINAL. IV PATENT WITH NO REDNESS OR EDEMA. FLUIDS INFUSING. L. FA SALINE LOCKED. STILL WAITING ON WOUND TO EVALUATE PT WOUNDS. WOUND DRESSING DONE WITH WET TO DRY AND ABD TO THE BUTTOCKS. FALL PROTOCOLL IN PLACE. CALL LIGHT WITHIN REACH. WILL CONTINUE TO MONITOR. REPORT GIVEN TO ONCOMING NURSE SIMI
[2019-11-25 19:25] VITALS: BP 139/64
--- NOTE | 2019-11-26 03:58 | NUR ---
ASSESSED AT START OF SHIFT PT A&OX4. DENIES PAIN. IV INTACT AND FLUIDS INFUISING. BLOOD SUGAR CHECKED AND INSULIN ADMINISTERED. NIGHT TIME SNACKS GIVEN. PT USES URINAL AT BEDSIDE AND REFUSES TURN THIS SHIFT. DRESSING INTACT IN SACRAL REGION AND PRAFO BOOTS ON RLE FALL PREQ IN PLACE AND CALL LIGHT IN REACH WILL CONT WITH POC TILL EOS.
[2019-11-26 06:36] LABS: ALBUMIN 2.2 g/dL (3.4-5.0); CALCIUM 7.9 mg/dL (8.5-10.1); CREATININE 1.5 mg/dL (0.7-1.3); PHOSPHORUS 3.1 mg/dL (2.5-4.9); POTASSIUM 4.5 mmol/L (3.5-5.1)
[2019-11-26] MEDS ORDERED: REGLAN 5 MG TAB5 MG PO (13:09)
[2019-11-26 13:17] VITALS: BP 150/80
--- NOTE | 2019-11-26 14:09 | NUR ---
CARE TEAM INDICATED THAT PT IS MEDICALLY STABLE TO DISCHARGE BACK TO [facility] THIS DAY. CHART COPY ORDERED. ORDERS TO BE FAXED. PT WILL NEED STRETCHER TRANSPORT. CM TO FOLLOW INDICATED WITH FACILITATING DC THIS DAY.
--- NOTE | 2019-11-26 14:52 | NUR ---
Assumed care of pt at 0700. Pt a&ox4. Denies pain. Talked to wound care about having orders to change patiet wound dressing. Wound care saw patient. Dressing changed. Prefo boot in place. Setup for meals. Able to feed himself. IVF infusing. Q2h turn. Uses urinal. Able to makes needs known. Will continue to monitor and D/C back to [facility].
--- NOTE | 2019-11-26 14:53 | NUR ---
WOUND CARE F/U; ROUNDING WITH DR HARTMANN. THE WOUNDS ARE STABLE AT THIS TIME NO CHANGES NECCESSARY THE RIGHT LAT KNEE, THE RIGHT LAT ANKLE AND THE SACRUM. CONT CURRENT TX DISCUSSED WITH MATT
--- NOTE | 2019-11-26 16:01 | NUR ---
PT DISCHARGING TODAY TO [facility] FAXED DC ORDERS/SUMMARY TO FACILITY SPOKE WITH SYLVIE IN ADM SHE RECEIVED ORDERS AND ARRANGED TRANSPORT BY [facility] VAN FOR [id number]. NOTIFIED PT'S EX (DPOA) HUMBERTO OF DC AND TIME OF TRANSPORT. UNIT NOTIFIED AND CHART COPY PER US. RN TO CALL REPORT TO [phone].
--- NOTE | 2019-12-02 08:12 | HC ---
[facility] [place] [address] CONSULTATION Name: CHRISTIAN ESCOBAR Room #: 438-P [facility] IN M.R.#: [id number] Admission: 11/22/19 Attend Phys: Bibi Finnegan Discharge: 11/26/19 Date of : 49 Report #: [id number] THIS REPORT FOR: cc: Candis Moya,Candis Burnett,Jose Rico MD ~ CC: Bibi Moya DATE OF SERVICE: 11/25/2019 HISTORY OF PRESENT ILLNESS: This is a 74-year-old male patient who was admitted to the hospital with nausea and vomiting. He was noted to have multiple pressure ulcerations on the lower extremities and gluteal sacral region. I have been asked to see him in this regard. The patient is eating right now. Denies any significant pain. PAST MEDICAL HISTORY: Positive for CVA with right-sided hemiparesis, hypertension, hyperlipidemia, peripheral neuropathy. He is status post left below knee amputation, atrial fibrillation and multiple pressure ulcerations. ALLERGIES: None. MEDICATIONS: Include aspirin, Lipitor, Depakote, folic acid, Levemir, loxapine, Kapspargo, NovoLog, Zoloft, Zofran, Zestril, omeprazole. SOCIAL HISTORY: Negative for alcohol or tobacco use. FAMILY HISTORY: Noncontributory. REVIEW OF SYSTEMS: CONSTITUTIONAL: The patient denies fever, chills or weight loss. NEUROLOGICAL: The patient denies focal weakness, numbness or tingling. EYES: The patient denies visual changes, redness or drainage. ENT: The patient denies earache, nasal drainage, sore throat. CARDIOVASCULAR: The patient denies chest pain or palpitations or diaphoresis. PULMONARY: The patient denies cough or shortness of breath. GASTROINTESTINAL: He does complain of nausea and vomiting. Denies diarrhea. GENITOURINARY: The patient denies frequency of urination. Denies dysuria. ORTHOPEDIC: The patient limited movement on his right side due to previous cerebrovascular accident. SKIN: He is aware of some ulcerations on his sacral region. Other systems in a 14-point review of systems are negative. PHYSICAL EXAMINATION: VITAL SIGNS: Include temperature 36.7, pulse 59, respiratory rate 19, blood [address] [address] CONSULTATION Name: CHRISTIAN ESCOBAR Room #: 438-P [facility] IN M.R.#: [id number] Admission: 11/22/19 Attend Phys: Bibi Finnegan Discharge: 11/26/19 Date of : 49 Report #: [id number] pressure 160/111. GENERAL: This is a chronically ill-appearing male patient who appears to be in minimal distress. HEENT: Head is normocephalic. Nose and throat are clear. NECK: Supple. LUNGS: Diminished. HEART: Regular. ABDOMEN: Soft. Bowel sounds present. EXTREMITIES: Demonstrate what appears to be stage 3 pressure ulceration of the right lateral knee and the right lateral ankle. He has large stage 3 pressure ulceration to the gluteal sacral region bilaterally. It is not infected. NEUROLOGIC: The patient has right hemiparesis. LABORATORY DATA: Include sodium 136, potassium 4.1, chloride 101, CO2 of 27, BUN 22, creatinine 2.0, glucose 160. White blood cell count 10.7 with hemoglobin of 9.5. CLINICAL IMPRESSION: 1. Stage 2 sacral gluteal pressure ulceration. 2. Stage 3 pressure ulcer of the right lateral knee and right lateral ankle. 3. Prior left below knee amputation. 4. Morbid obesity. 5. Right-sided hemiparesis secondary to cerebrovascular accident. RECOMMENDATIONS: At this point in time, the patient will be started on border foam to the right lateral knee and right lateral ankle. PRAFO boots, low air loss mattress, q. 2 hour turning and positioning, zinc oxide to the sacral gluteal ulceration with a bordered foam secondary dressing. He will need ongoing nutritional support. I appreciate being asked to see him in consultation. <ELECTRONICALLY SIGNED> By: Jose Prado MD 12/02/19 0812 [id number] Jose Prado MD /nt
== END 2019-11-26 16:30 | DRG 592 ==
LOC: ER 17:01 → EROBS 19:44 → 4S 19:44 → 2N 21:12 → 4S 11-23 15:12
PROVIDERS: Nurse Practitioner; Physician Assistant; ADMIT Hospitalist
DX: L89.153 Pressure ulcer of sacral region, stage 3 (principal); N17.0 Acute kidney failure with tubular necrosis; E44.0 Moderate protein-calorie malnutrition; I69.351 Hemiplegia and hemiparesis following cerebral infarction affecting right dominant side; K52.9 Noninfective gastroenteritis and colitis, unspecified; L89.893 Pressure ulcer of other site, stage 3; L89.513 Pressure ulcer of right ankle, stage 3; N30.90 Cystitis, unspecified without hematuria; D72.829 Elevated white blood cell count, unspecified; I48.91 Unspecified atrial fibrillation; E86.0 Dehydration; B07.8 Other viral warts; D63.8 Anemia in other chronic diseases classified elsewhere; E11.42 Type 2 diabetes mellitus with diabetic polyneuropathy; E11.22 Type 2 diabetes mellitus with diabetic chronic kidney disease; I12.9 Hypertensive chronic kidney disease with stage 1 through stage 4 chronic kidney disease, or unspecified chronic kidney disease; N18.9 Chronic kidney disease, unspecified; R63.4 Abnormal weight loss; K21.9 Gastro-esophageal reflux disease without esophagitis; F32.9 Major depressive disorder, single episode, unspecified; F41.9 Anxiety disorder, unspecified; G47.00 Insomnia, unspecified; D50.9 Iron deficiency anemia, unspecified; Z68.36 Body mass index [BMI] 36.0-36.9, adult; Z79.82 Long term (current) use of aspirin; Z89.512 Acquired absence of left leg below knee; Z79.899 Other long term (current) drug therapy; Z79.01 Long term (current) use of anticoagulants
CPT/HCPCS: 10081; 10102

== ENCOUNTER 2021-01-28 16:51 | Inpatient (IN) | payer OTHER ==
[~2021-01-28] VITALS: Ht 182.9 cm; Wt 150.7 kg
[2021-01-28 16:51] VITALS: BP 174/130
[~2021-01-28 16:51] MED LIST changes: -ATORVASTATIN CA40 MG PO; +LIPITOR40 MG PO; +LISINOPRIL2.5 MG PO; +OMEPRAZOLE 20 M20 M1 PO; +REGLAN 5 MG TAB5 MG PO; +ZOLOFT 50 MG TA50 MG PO; -ZOLOFT50 MG PO
[2021-01-28 17:08] LABS: BE(vivo) -1.3 mmol/L (-2 to +3); HCO3 27.2 mmol/L (22.0-26.0); PCO2 67.1 mmHg (35.0-45.0); PO2 176.3 mmHg (80.0-100.0); pH 7.226 (7.360-7.450); sO2 98.9 % (92.0-98.0)
[2021-01-28 17:15] LABS: URINE BILIRUBIN NEGATIVE (Negative); URINE BLOOD NEGATIVE (Negative); URINE CLARITY CLEAR; URINE COLOR YELLOW; URINE GLUCOSE-RANDOM* NEGATIVE (Negative); URINE KETONES NEGATIVE (Negative); URINE LEUKOCYTES-REFLEX NEGATIVE (Negative); URINE NITRITE-REFLEX NEGATIVE (Negative); URINE PROTEIN (DIPSTICK) 1+ (Negative); URINE SPECIFIC GRAVITY >= 1.030 (1.005-1.035); URINE UROBILINOGEN 0.2 E.U./dl (0.2-1.0)
[2021-01-28 17:17] LABS: ABSOLUTE NEUTROPHILS 9.1 thou/uL (1.4-8.2); BASOPHILS 0.7 % (0.0-2.0); EOSINOPHILS 3.1 % (0.0-3.0); HEMATOCRIT 31.1 % (42.0-52.0); HEMOGLOBIN 9.5 gm/dL (14.0-18.0); LYMPHOCYTES 8.4 % (24.0-44.0); MCH 24.6 pg (26.0-34.0); MCHC 30.5 g/dL (28.0-37.0); MCV 80.9 fL (80.0-100.0); MONOCYTES 7.7 % (1.0-8.0); PLATELET COUNT 215 thou/uL (150-400); POLYS 80.1 % (36.0-66.0); RBC 3.84 mil/uL (4.50-6.00); WBC 12.2 thou/uL (4.0-11.0)
[2021-01-28 17:21] LABS: ANION GAP 6 mmol/L (7-16); BUN 27 mg/dL (7-18); CALCIUM 8.6 mg/dL (8.5-10.1); CHLORIDE 103 mmol/L (98-107); CO2 30 mmol/L (21-32); CREATININE 1.5 mg/dL (0.7-1.3); GLUCOSE 140 mg/dL (74-106); POTASSIUM 4.9 mmol/L (3.5-5.1); SODIUM 139 mmol/L (136-145)
[2021-01-28 17:25] LABS: SQUAMOUS 0-3 Few /LPF (0-3)
[2021-01-28 17:26] LABS: BACTERIA-REFLEX 1-9 Few /HPF (None Seen); CASTS None Seen /LPF (None Seen); CRYSTALS None Seen /LPF (None Seen); URINE RBC 1-2 Rare /HPF (NONE SEEN); URINE WBC-REFLEX 0-5 Rare /HPF (0-5)
[2021-01-28 17:32] LABS: ALBUMIN 3.2 g/dL (3.4-5.0); AMYLASE 33 U/L (25-115); DIRECT BILIRUBIN 0.2 mg/dL (<0.1-0.2); LIPASE 94 U/L (73-393); MAGNESIUM 2.4 mg/dL (1.8-2.4); PHOSPHORUS 4.6 mg/dL (2.6-4.7); SGOT 10 U/L (15-37); SGPT 16 U/L (16-63); TOTAL BILIRUBIN 0.6 mg/dL (0.2-1.0); TOTAL PROTEIN 8.7 g/dL (6.4-8.2); TROPONIN-I <0.06 ng/mL (<0.06)
[2021-01-28] MEDS ORDERED: NORVASC10 MG PO (17:47)
[2021-01-28] MEDS ORDERED: CARVEDILOL25 MG PO (17:48)
[2021-01-28] MEDS ORDERED: CHOLECALCIFEROL PO (17:49)
[2021-01-28] MEDS ORDERED: CYANOCOBALAMIN PO (17:49)
[2021-01-28] MEDS ORDERED: FERROUS SULFATE PO (17:50)
[2021-01-28] MEDS ORDERED: NEURONTIN100 MG PO (17:51)
[2021-01-28] MEDS ORDERED: NEURONTIN 300M300 M2 PO (17:52)
[2021-01-28] MEDS ORDERED: HALOPERIDOL PO (17:54)
[2021-01-28] MEDS ORDERED: PREDNISOLONE ACE5 ML LT. EYE (17:55)
[2021-01-28] MEDS ORDERED: PROSOURCE PO (17:56)
[2021-01-28] MEDS ORDERED: TRAMADOL 50 MG50 MG PO (17:58)
[2021-01-28] MEDS ORDERED: VIT C PO (17:59)
[2021-01-28] MEDS ORDERED: TRAZODONE HCL50 MG PO (17:59)
[2021-01-28] MEDS ORDERED: ZINC PO (18:00)
[2021-01-28 18:13] LABS: BE(vivo) -1.6 mmol/L (-2 to +3); HCO3 26.3 mmol/L (22.0-26.0); PCO2 62.1 mmHg (35.0-45.0); PO2 109.9 mmHg (80.0-100.0); sO2 97.1 % (92.0-98.0)
[2021-01-28 18:14] LABS: pH 7.245 (7.360-7.450)
[2021-01-28 18:33] LABS: CHOLESTEROL 75 mg/dL (<200); HDL CHOLESTEROL 32 mg/dL (>40); LDL CHOLESTEROL 27 mg/dL (<100); TC:HDL 2.3 Ratio (Not establshd); TRIGLYCERIDE 83 mg/dL (<150); VLDL 17 mg/dL (<40)
[2021-01-28 18:34] LABS: SERUM ASSESSMENT Clear
[2021-01-28 19:10] VITALS: BP 129/72
[2021-01-28 19:12] LABS: FOLIC ACID 69.5 ng/mL (8.6-58.9)
[2021-01-28 19:19] VITALS: BP 135/71
--- NOTE | 2021-01-28 20:08 | NUR ---
ultrasound completed at bedside before transfer to CCU. transported via cart by EDUCATIONAL ADMINISTRATION TEACHER and RT.
[2021-01-28 20:20] VITALS: BP 135/71
[2021-01-28 23:00] VITALS: BP 124/60
[2021-01-29 03:10] VITALS: BP 142/65
--- NOTE | 2021-01-29 06:17 | NUR ---
ASSUME CARE 190. PT/VITALS STABLE. INTERMITTENT RIGHT UPPER EXTREMITY PAIN WITH TYLENOL GIVEN FOR RELIEF. Q2 TURNS/ FLACCID ON RIGHT SIDE POST CVA. RIGHT ARM APPEARS SWOLLEN BUT NO REDNESS NOTED. ELEVATED ON PILLOW. PT CAN MOVE LEFT EXTREMITIES. LEFT BKA NOTED. AFIB ON MONITOR WITH CONTROLLED IN 60s AND 70s. A/O TO PERSON AND PLACE BUT NOT TO SITUATION. COMMUNICATES NEEDS WELL ND ANSWERS QIESTIONS APPROPRIATELY. TAKES MEDS WELL WITH APPLESAUCE. 97% ON 50% FIO2 BIPAP. PT TOLERATING BIPAP WELL. ASSESSMENT CHARTED. PROGRESSING SLOWLY WITH POC. PLAN IS TO CONTINUE TO DIURESE PT/MANAGE INFECTION AND FOLLOW WITH CARDIOLOGY FOR NEW ONSET AFIB. WILL CONTINUE TO MONITOR AND FOLLOW WITH POC
--- NOTE | 2021-01-29 06:48 | EKG ---
[address] [address] ELECTROCARDIOGRAM REPORT Name: CHRISTIAN ESCOBAR Room #: 215-P ADM IN M.R.#: [id number] Admission: 01/28/21 Attend Phys: Bibi Finnegan Discharge: Date of : 49 Report #: [id number] 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 ALBERTO : 1945 Requested By: Matt Robles Order Number: [id number] MD: Porfirio Dong Measurements Intervals Nebo Rate: 79 P: MO: QRS: 66 QRSD: 98 T: -77 QT: 403 QTc: 463 Interpretive Statements Atrial fibrillation Borderline T abnormalities, inferior leads Baseline wander in lead(s) V1 Compared to ECG 11/22/2019 17:46:20 T-wave abnormality now present Atrial flutter no longer present Electronically Signed On 01-29-2021 6:48:11 CDT by Porfirio Dong [email or web address] <ELECTRONICALLY SIGNED> By: Porfirio Dong MD, [facility] 01/29/21 0648 [id number] [id number] Porfirio Dong MD, [facility] /[facility]
[2021-01-29 07:25] VITALS: BP 143/67
--- NOTE | 2021-01-29 09:40 | NUR ---
WOUND CONSULT; ASSESSMENT REVEALED A STAGE 2 PRESURE ULCER TO THE COCCYX/BUTTOCKS WITH A GREAT AMOUNT OF SCARING, THIS WOUND HAS BEEN PRESENT FOR A LONG TIME. NO S/S OF INFECTION. SCANT DRAINAGE. NO ODOR. THE RIGHT FOOT WOUND S/S IS CONSISTANT WITH SOME TYPE OF MECHANICAL PRESSURE OF AN UKNOWN ORIGIN, MOIST SEROUS DRAINAGE. THE RIGHT HAD HAS ABRASIONS ON THE KNUCKLES. RECCOMENDATIONS; -LOW AIR LOSS BED PUMP. -Q2H TURNING/REPOSITIONING. -PRAFO BOOT -ZGUARD TO BUTTOCK/COCCYX. -AG FOAM TO RIGHT FOOT. -RIGHT HAND ABRAISIONS APPLIED MARATHON, TANYA JIMENES. DISCUSSED WITH MATT
[2021-01-29 10:05] LABS: ANION GAP 9 mmol/L (7-16); BUN 27 mg/dL (7-18); CALCIUM 8.2 mg/dL (8.5-10.1); CHLORIDE 105 mmol/L (98-107); CO2 31 mmol/L (21-32); CREATININE 1.6 mg/dL (0.7-1.3); GLUCOSE 86 mg/dL (74-106); POTASSIUM 4.5 mmol/L (3.5-5.1); SODIUM 145 mmol/L (136-145)
[2021-01-29 10:14] LABS: PHOSPHORUS 4.4 mg/dL (2.6-4.7); TROPONIN-I <0.06 ng/mL (<0.06)
[2021-01-29 11:10] VITALS: BP 134/62
--- NOTE | 2021-01-29 11:42 | NUR ---
ASSESSMENT: CM REVIEWED CHART. 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 PT WAS PLACED ON THE BIPAP. PT HAS A PAST HX OF CVA AND RIGHT BKA. PT USES A LIFT DEVICE AT THE FACILITY FROM BED TO WHEELCHAIR. CM FAXED UPDATED CLINICAL TO [facility] AND SPOKE WITH [facility] IN ADMISSIONS. CM NOTIFIED HERE PATIENT WILL BE HERE THROUGH THE WEEKEND AND CM WILL UPDATE HER ON MONDAY. LIASON STATING PT DOES NOT NORMALLY WEAR OXYGEN AT BASELINE. PT WAS TESTED FOR COVID 19 AND RESULT IS NEGATIVE, RESULT FAXED TO [place]. CM ATTEMPTED TO CONTACT HIS EX WHO IS LISTED BUT NO ANSWER AND VM LEFT. CM ATTEMPTED TO CONTACT SON MIKE BUT UNABLE TO REACH. PT REMAINS ON IV LASIX AND SPEECH HAS BEEN CONSULTED TO SEE PATIENT. CM WILL CONTINUE TO FOLLOW TO ASSIST NEEDED. NO WEEKEND DISCHARGE ANTIICPATED.
--- NOTE | 2021-01-29 12:24 | 2DMMODE ---
[facility] [place] [address] 2 D/M-MODE ECHOCARDIOGRAM Name: CHRISTIAN ESCOBAR Room #: 215-P ADM IN M.R.#: [id number] Admission: 01/28/21 Attend Phys: Bibi Finnegan Discharge: Date of : 49 Report #: [id number] THIS REPORT FOR: cc: Jose Baker MD, Srinath MD Lammoglia, Francisco J. MD ~ APPROVED REPORT Study performed: 01/29/2021 10:42:36 EXAM: Comprehensive 2D, Doppler, and color-flow Echocardiogram Patient Location: Bedside Room #: 215 Status: routine BSA: 2.34 HR: 66 bpm BP: 143/67 mmHg Rhythm: Atrial Fibrillation Other Information Study Quality: Adequate Technically limited study due to sitting up on BiPAP, morbid obesity. Indications Dyspnea, Afib, CHF. 2D Dimensions RVDd: 39.35 mm IVSd: 15.03 (7-11mm) LVOT Diam: 23.09 (18-24mm) LVDd: 37.90 mm PWd: 13.96 (7-11mm) LVDs: 26.90 (25-40mm) Left Atrium: 40.34 (27-40mm) Aortic Root: 38.38 mm Volumes Left Atrial Volume (Systole) Single Plane 4CH: 74.23 mL Single Plane 2CH: 82.13 mL LA ESV Index: 36.00 mL/m2 Aortic Valve AoV Peak Brayan.: 1.42 m/s AO Peak Gr.: 8.09 mmHg LVOT Max P.81 mmHg [facility] [address] [place] [address] 2 D/M-MODE ECHOCARDIOGRAM Name: SHAWNCHRISTIAN Room #: 215-P [facility] IN ..#: [id number] Admission: 01/28/21 Attend Phys: Bibi Romano Discharge: Date of : 49 Report #: [id number] LVOT Max V: 0.84 m/s LAUREN Vmax: 2.47 cm2 Mitral Valve MV Decel. Time: 209.58 ms MV E Max Brayan.: 0.99 m/s Pulmonary Valve PV Peak Brayan.: 0.82 m/s PV Peak Gr.: 2.68 mmHg Tricuspid Valve TR Peak Brayan.: 3.32 m/s RAP Estimate: 15.00 mmHg TR Peak Gr.: 44.01 mmHg PA Pressure: 59.00 mmHg Left Ventricle The left ventricle is normal size. There is normal LV segmental wall motion. Moderate concentric left ventricular hypertrophy. Left ventricular systolic function is normal. LVEF is 60-65%. This study is not technically sufficient to allow evaluation of the LV diastolic function due to atrial fibrillation. Right Ventricle The right ventricle is normal size. The right ventricular systolic function is normal. Atria Mild biatrial enlargement. Aortic Valve Aortic valve is calcified. No aortic regurgitation is present. There is no aortic valvular stenosis. Mitral Valve The mitral valve is normal in structure. Moderate mitral annular calcification. Mild mitral regurgitation. No evidence of mitral valve stenosis. Tricuspid Valve The tricuspid valve is normal in structure. Moderate tricuspid regurgitation. Estimated PAP is 55-60mmHg. Pulmonic Valve The pulmonary valve is normal in structure. There is no pulmonic valvular regurgitation. [facility] [address] [place] [address] 2 D/M-MODE ECHOCARDIOGRAM Name: CHRISTIAN ESCOBAR Room #: 215-P [facility] IN M.R.#: [id number] Admission: 01/28/21 Attend Phys: Bibi Romano Discharge: Date of : 49 Report #: [id number] Great Vessels The aortic root is normal in size. Ascending aorta is not well visualized. IVC is dilated and collapses <50% with inspiration. Pericardium There is no pericardial effusion. <Conclusion> The left ventricle is normal size. Moderate concentric left ventricular hypertrophy. LVEF is 60-65%. Mild biatrial enlargement. Aortic valve is calcified. The mitral valve is normal in structure. Moderate mitral annular calcification. Mild mitral regurgitation. The tricuspid valve is normal in structure. Moderate tricuspid regurgitation. Estimated PAP is 55-60mmHg. The pulmonary valve is normal in structure. The aortic root is normal in size. There is no pericardial effusion. <ELECTRONICALLY SIGNED> By: Adrian Arenas MD 01/29/21 1224 [id number] 122 Adrian Arenas MD /INF
[2021-01-29 15:25] VITALS: BP 132/65
--- NOTE | 2021-01-29 16:37 | NUR ---
ASSESSMENT CHARTED - MEDS PER NOV - PT SEEN BY SPEECH AND STARTED ON MECHANICAL ALTERED DIET - MIGUEL WELL - NO EVIDIENCE OF ASPIRATION NOTED. PT TURNED IN BED - SEEN BY WOUND CARE TODAY -ORDERS RECIEVED FOR Z GAURD TO BUTTOCKS AND DRESSING APPLIED TO AREA ON RT FOOT - NEW PRAFO BOOT PLACED. NO CO'S OF PAIN OR NAUSEA. PT NOW OFF BIPAP AND ON 4 L NC. PT ONCE OFF BIAPA ABLE TO COMMUNICATE - A&O X 4. PT MGIUEL 4 L NC RESP APPEAR EVEN NON LABOURED SAT 97%. NO CO'S AT THE PRESENT TIME - APPEARS TO BE RESTING COMFORTABLY.
[2021-01-29 19:21] VITALS: BP 142/67
[2021-01-30 04:04] VITALS: BP 155/65
--- NOTE | 2021-01-30 06:00 | NUR ---
PT RESTING QUIETLY IN ROOM THRU THE NOC, ASSESSMENTS CHARTED, REPOSITIONED AND TURNED Q 2HRS, VSS, NO C/O PAIN, ANTIBIOTIC STARTED THIS AM FOR POSITIVE BLOOD CULTURES, SIDHU WITH YELLOW URINE OUTPUT, REMAINS ON 4L/NC WITH SATS 95 TO 97%, WILL CON'T TO MONITOR PER PPOC.
[2021-01-30 08:00] VITALS: BP 144/77
[2021-01-30 09:18] LABS: CALCIUM 8.5 mg/dL (8.5-10.1); CREATININE 1.6 mg/dL (0.7-1.3); POTASSIUM 3.8 mmol/L (3.5-5.1)
--- NOTE | 2021-01-30 11:10 | NUR ---
Received asleep on bed. Due medications given as prescribed, able to swallow meds w/o difficulty- given with apple sauce; aspiration precaution observed. On telemetry; no complains and signs of chest pain, crushing sensation and heaviness. Assisted in ADLs. Vital signs stable. On O2 at 4lpm via nasal cannula. On mechanically soft diet- assisted and encouraged in eating and drinking; no nausea, no vomiting and no abdominal pain noted. Om blood sugar monitoring, taken and recorded accordingly; pre-breakfast insulin omitted, pt with low blood sugar, apple juice given and blood sugar rechecked- WNL. With orosco in place- output measured and recorded accordingly; incontinent of bowels- checked frequently and changed as needed. Falls bundle in place. Turned regularly on his sides. With SL at L AC and R AC. With wound at R foot- dressing C/D/I. With L BKA- stump fully healed. With redness at his buttocks- Z guard applied. With contraction on his R hand- kept elevated. No complains of pain made during assessment. To continue monitoring patient.
[2021-01-30 12:16] VITALS: BP 117/61
[2021-01-30 16:00] VITALS: BP 147/66
[2021-01-30 20:03] VITALS: BP 104/60
--- NOTE | 2021-01-31 04:06 | NUR ---
Assumed pt care at 1900. Pt is alert but feeling anxious. No sign of distress noted in pt, patient is laying in bed. Assessment completed and documented. Repositioning. Scheduled meds administered to pt. Tolerated PO intake. No acute events overnight. Continue to monitor. No further needs at this time.
[2021-01-31 04:49] LABS: ALBUMIN 2.7 g/dL (3.4-5.0); CALCIUM 8.3 mg/dL (8.5-10.1); CREATININE 1.8 mg/dL (0.7-1.3); PHOSPHORUS 3.6 mg/dL (2.5-4.9); POTASSIUM 3.8 mmol/L (3.5-5.1)
[2021-01-31 05:03] VITALS: BP 104/60
[2021-01-31 08:00] VITALS: BP 156/86
[2021-01-31 12:35] VITALS: BP 133/71
[2021-01-31 16:00] VITALS: BP 150/76
[2021-01-31 19:23] VITALS: BP 152/78
--- NOTE | 2021-02-01 04:04 | NUR ---
PT RESTING IN NO ACUTE DISTRESS.A/OX4.VSS.PT DENIES ANY CONCERNS.TOTAL ASSIST W/ADLS AND BED REPOSITIONING.NAHUM HEWITT.ABT INFUSED PER ORDERS.PT PROGRESSING FAIRLY TO THE DISCHARGE GOALS.POSIBLE DISCHARGE IN 1-2 DAYS TO SNF.
[2021-02-01 04:25] VITALS: BP 142/71
[2021-02-01 04:48] LABS: ALBUMIN 2.6 g/dL (3.4-5.0); CALCIUM 8.2 mg/dL (8.5-10.1); CREATININE 1.6 mg/dL (0.7-1.3); PHOSPHORUS 3.7 mg/dL (2.5-4.9)
[2021-02-01 04:53] LABS: HEMATOCRIT 26.9 % (42.0-52.0); HEMOGLOBIN 8.5 gm/dL (14.0-18.0); MCH 24.9 pg (26.0-34.0); MCHC 31.5 g/dL (28.0-37.0); MCV 79.3 fL (80.0-100.0); RBC 3.39 mil/uL (4.50-6.00); RDW 18.4 % (10.5-14.5); WBC 8.5 thou/uL (4.0-11.0)
[2021-02-01 07:30] VITALS: BP 155/73
[2021-02-01] MEDS ORDERED: LEVOFLOXACIN500 MG PO (08:20)
[2021-02-01] MEDS ORDERED: ELIQUIS5 MG PO (08:21)
[2021-02-01] MEDS ORDERED: TORSEMIDE20 MG PO (08:26)
[2021-02-01] MEDS ORDERED: POTASSIUM CHLO10 ME1 PO (08:27)
--- NOTE | 2021-02-01 10:34 | NUR ---
WOUND CARE FOLLOW UP; ASSESSMENT OF THE RIGHT FOOT. THE FOOT IS GREATLY IMPROVED BUT DRY. NO S/S OF INFECTION OR TRAUMA. RECOMMENDATION; -CHANGE TO XEROFORM,BORDER FOAM. DISCUSSED WITH MATT
[2021-02-01 11:10] VITALS: BP 155/84
--- NOTE | 2021-02-01 12:10 | NUR ---
ASSUMED CARE OF PT 01/31/21 SHIFT CHANGE. ASSESSMENTS CHARTED.MEDS GIVEN. VSS. NO C/O PAIN. C/O ANXIETY THROUGHOUT DAY, MANAGED WITH PO ATIVAN PER ORDERS. BEDREST PT TURNED MIGUEL. NO S/SX SWALLOWING ISSUES PT MIGUEL PO MEDS. O2 SATS WNL 4L. UOP ADEQUATE. WOUND CARE PER ORDERS. CONT POC. REPORT PASSED ONTO NOC MATT.
--- NOTE | 2021-02-01 14:31 | NUR ---
Patient to dc to [facility]. Faxed orders. Chart copy. Sp with DPOA Lizabeth to alert of discharge and timeframe. Jena altamirano from [facility] for [phone]. Faxed clinical update as well. No further needs
== END 2021-02-01 13:17 | DRG 871 ==
LOC: ER 16:51 → 2N 20:23
PROVIDERS: Emergency Medicine; ADMIT Hospitalist; ATTEND Hospitalist
PROC: 5A09357 Assistance with Respiratory Ventilation, Less than 24 Consecutive Hours, Continuous Positive Airway Pressure (ICD-10-PCS; principal; 2021-01-28)
DX: A41.9 Sepsis, unspecified organism (principal); J18.9 Pneumonia, unspecified organism; I50.31 Acute diastolic (congestive) heart failure; J96.01 Acute respiratory failure with hypoxia; G93.40 Encephalopathy, unspecified; I48.20 Chronic atrial fibrillation, unspecified; I69.351 Hemiplegia and hemiparesis following cerebral infarction affecting right dominant side; I13.0 Hypertensive heart and chronic kidney disease with heart failure and stage 1 through stage 4 chronic kidney disease, or unspecified chronic kidney disease; G93.89 Other specified disorders of brain; L97.519 Non-pressure chronic ulcer of other part of right foot with unspecified severity; I48.0 Paroxysmal atrial fibrillation; E11.22 Type 2 diabetes mellitus with diabetic chronic kidney disease; N18.9 Chronic kidney disease, unspecified; I08.1 Rheumatic disorders of both mitral and tricuspid valves; F20.9 Schizophrenia, unspecified; F31.9 Bipolar disorder, unspecified; Z66 Do not resuscitate; Z20.822 Contact with and (suspected) exposure to COVID-19; Z79.82 Long term (current) use of aspirin; Z79.899 Other long term (current) drug therapy; Z79.4 Long term (current) use of insulin; Z87.891 Personal history of nicotine dependence; Z89.512 Acquired absence of left leg below knee; Z89.511 Acquired absence of right leg below knee
CPT/HCPCS: 10081